=== PATIENT | male | born 1965 | race Caucasian/White ===

== ENCOUNTER 2018-07-25 10:14 | Emergency (ER) | payer OTHER ==
[2018-07-25] MEDS ORDERED: AMOX/K CLAV 875 MG TAB ONE (11:29)
[2018-07-25] MEDS ORDERED: MORPHINE 4 MG/ML SYR ONE (11:29)
[2018-07-25] MEDS ORDERED: ONDANSETRON 4 MG/2 ML VIAL ONE (11:29)
[2018-07-25] MEDS ORDERED: CLINDAMYCIN 600MG/D5W 600 MG/50 ML BAG IV ONE (11:30)
--- NOTE | 2018-07-25 11:39 | ER ---
Nurse's Notes [facility] Name: America Guan Age: 53 yrs Sex: Male : 1965 Arrival Date: 07/25/2018 Time: 10:16 Bed 23 Private MD: Yasmin Meadows H Diagnosis: Cellulitis and acute lymphangitis of finger and toe Presentation: 07/25 10:25 Presenting complaint: Patient states: left hand swelling started last week after sv getting a nail stuck in his left 2nd digit on Wednesday, then had to start using crutches on Wednesday d/t another injury and that is when the hand started swelling. Transition of care: patient was not received from another setting of care. Onset of symptoms was July 23, 2018. Initial Sepsis Screen: Does the patient meet any 2 criteria? No. Patient's initial sepsis screen is negative. Does the patient have a suspected source of infection? No. Patient's initial sepsis screen is negative. Care prior to arrival: None. 10:25 Method Of Arrival: Ambulatory sv 10:25 Acuity: ANA M 3 sv 12:17 Risk Assessment: Do you want to hurt yourself or someone else? Patient reports no aj1 desire to harm self or others. Historical: - Allergies: 10:29 No Known Allergies; sv - PMHx: 10:29 Hypertension; sv - PSHx: 10:29 elbow; sv - Immunization history:: Last tetanus immunization: up to date. - Social history:: Patient/guardian denies using alcohol, street drugs, The patient lives with family, Smoking status: unknown. - Family history:: not pertinent. - Ebola Screening: : Patient denies travel to an Ebola-affected area in the 21 days before illness onset. Screenin:35 Abuse screen: Denies threats or abuse. Denies injuries from another. Nutritional aj1 screening: No deficits noted. Tuberculosis screening: No symptoms or risk factors identified. 12:17 Fall Risk None identified. aj1 Assessment: 10:35 General: Appears in no apparent distress. uncomfortable, Behavior is calm, cooperative, aj1 appropriate for age. Pain: Complains of pain in left hand. Neuro: Level of Consciousness is awake, alert, obeys commands, Oriented to person, place, time, situation. Cardiovascular: Patient's skin is warm and dry. Respiratory: Airway is patent Respiratory effort is even, unlabored, Respiratory pattern is regular, symmetrical. GI: No signs and/or symptoms were reported involving the gastrointestinal system. : No signs and/or symptoms were reported regarding the genitourinary system. EENT: No signs and/or symptoms were reported regarding the EENT system. Derm: Skin is pink, warm \T\ dry. Musculoskeletal: Range of motion: limited in DIP of left middle finger, PIP of left middle finger and MCP of left middle finger Swelling present in left hand. 11:37 Reassessment: Patient appears in no apparent distress at this time. No changes from aj1 previously documented assessment. Patient and/or family updated on plan of care and expected duration. Pain level reassessed. Patient is alert, oriented x 3, equal unlabored respirations, skin warm/dry/pink. 11:41 Reassessment: Patient discharge pending completion of IV antibiotics. aj1 11:55 Reassessment: Patient states that his pain is coming back. Notified Dr. Michael. aj1 11:57 Reassessment: Dr. Michael at bedside. aj1 Vital Signs: 10:29 BP 126 / 86; Pulse 82; Resp 18; Temp 97.6; Pulse Ox 98% ; Weight 73.94 kg; Height 5 ft. sv 10 in. (177.80 cm); Pain 8/10; 12:17 BP 132 / 75; Pulse 88; Resp 18; Pulse Ox 99% on R/A; aj1 10:29 Body Mass Index 23.39 (73.94 kg, 177.80 cm) sv ED Course: 10:16 Patient arrived in ED. ag5 10:17 Yasmin Meadows DO is Private Physician. ag5 10:29 Triage completed. sv 10:30 Arm band placed on. sv 10:35 Patient has correct armband on for positive identification. Bed in low position. Call aj1 light in reach. Side rails up X 1. 10:35 No provider procedures requiring assistance completed. aj1 10:36 Donald Michael MD is Attending Physician. ma2 10:39 Luisa Mckoy RN is Primary Nurse. aj1 11:17 Hand Left 3 View XRAY In Process Unspecified. EDMS 11:17 Inserted saline lock: 20 gauge in right antecubital area, using aseptic technique. lt1 11:38 Lopez Everett MD is Referral Physician. ma2 12:16 IV discontinued, intact, bleeding controlled, No redness/swelling at site. Pressure aj1 dressing applied. Administered Medications: 11:22 Drug: Augmentin 875 mg Route: PO; aj1 12:14 Follow up: Response: No adverse reaction aj1 11:22 Drug: Clindamycin 600 mg Route: IVPB; Infused Over: 30 mins; Site: right antecubital; aj1 12:14 Follow up: IV Status: Completed infusion; IV Intake: 50ml aj1 11:22 Drug: morphine 4 mg Route: IVP; Site: right antecubital; aj1 11:45 Follow up: Response: No adverse reaction; Pain is decreased aj1 11:22 Drug: Zofran 4 mg Route: IVP; Site: right antecubital; aj1 11:45 Follow up: Response: No adverse reaction aj1 12:13 Drug: [place] 10 mg-325 mg 1 tabs Route: PO; aj1 12:15 Follow up: Response: No adverse reaction aj1 Intake: 12:14 IV: 50ml; Total: 50ml. aj1 Outcome: 11:39 Discharge ordered by MD. ma2 12:17 Discharged to home via wheelchair. aj1 12:17 Condition: good 12:17 Discharge instructions given to patient, Instructed on discharge instructions, follow up and referral plans. no drinking with medication, no driving heavy equipment, medication usage, Demonstrated understanding of instructions, follow-up care, medications, Prescriptions given X 3. 12:19 Patient left the ED. aj1 Signatures: Dispatcher [employer] EDLuisa Rose RN RN aj1 Rylee Mcgee RN RN sv Alzahri, Mohammad, MD MD ma2 Gaskin, Ajare Marisa Canales lt1 Corrections: (The following items were deleted from the chart) 10:30 10:29 Pulse 82bpm; Resp 18bpm; Pulse Ox 98%; Temp 97.6F; 73.94 kg; Height 5 ft. 10 in.; sv BMI: 23.3; Pain 8/10; sv
--- NOTE | 2018-07-25 11:39 | EDPHYS ---
Physician Documentation [facility] Name: America Guan Age: 53 yrs Sex: Male : 1965 Arrival Date: 07/25/2018 Time: 10:16 Bed 23 Private MD: Yasmin Meadows H ED Physician Donald Michael HPI: 07/25 11:28 This 53 yrs old Male presents to ER via Ambulatory with complaints of Hand ma2 Swelling, Hand Pain. 11:28 The patient or guardian reports pain, a puncture wound. The complaints affect the left ma2 hand diffusely. Context: The problem was sustained at home. Onset: The symptoms/episode began/occurred gradually. Associated signs and symptoms: Pertinent negatives: decreased sensation distally, fever, numbness distally, tingling distally, vomiting. Severity of symptoms: At their worst the symptoms were mild, in the emergency department the symptoms are unchanged. The patient has not experienced similar symptoms in the past. stuck himself w a nail 3 days ago, here with left index finger/hand swelling and pain . Historical: - Allergies: 10:29 No Known Allergies; sv - PMHx: 10:29 Hypertension; sv - PSHx: 10:29 elbow; sv - Immunization history:: Last tetanus immunization: up to date. - Social history:: Patient/guardian denies using alcohol, street drugs, The patient lives with family, Smoking status: unknown. - Family history:: not pertinent. - Ebola Screening: : Patient denies travel to an Ebola-affected area in the 21 days before illness onset. ROS: 11:28 Constitutional: Negative for fever, chills, and weight loss, ENT: Negative for injury, ma2 pain, and discharge, Cardiovascular: Negative for chest pain, palpitations, and edema, Respiratory: Negative for shortness of breath, cough, wheezing, and pleuritic chest pain, Abdomen/GI: Negative for abdominal pain, nausea, diarrhea, and constipation, Skin: Negative for injury, rash, and discoloration, Neuro: Negative for headache, weakness, numbness, tingling, and seizure, Psych: Negative for depression, anxiety, suicide ideation, homicidal ideation, and hallucinations. 11:28 MS/extremity: Positive for pain, Negative for abrasion, contusion, rash, tingling. Exam: 11:28 Constitutional: This is a well developed, well nourished patient who is awake, alert, ma2 and in no acute distress. Chest/axilla: Normal chest wall appearance and motion. Nontender with no deformity. No lesions are appreciated. Cardiovascular: Regular rate and rhythm with a normal S1 and S2. No gallops, murmurs, or rubs. Normal PMI, no JVD. No pulse deficits. Respiratory: Lungs have equal breath sounds bilaterally, clear to auscultation and percussion. No rales, rhonchi or wheezes noted. No increased work of breathing, no retractions or nasal flaring. Skin: Warm, dry with normal turgor. Normal color with no rashes, no lesions, and no evidence of cellulitis. Neuro: Awake and alert, GCS 15, oriented to person, place, time, and situation. Cranial nerves II-XII grossly intact. Motor strength 5/5 in all extremities. Sensory grossly intact. Cerebellar exam normal. Normal gait. 11:28 Musculoskeletal/extremity: Extremities: all appear grossly normal, with no appreciated pain with palpation, ROM: Circulation is intact in all extremities. Sensation intact. Compartment Syndrome exam of affected extremity: is normal. no tingling, no sensation deficit, no palor, no weak pulses, Joints: Tendon exam: specific tendon testing normal through active and passive range of motion left index finger mild swelling and redness around puncture wound, able to actively and passively flex and extend, tenosynovitis unlikely given no uniform swelling, no ttp over palmar tendon sheeth, able to flex and extend actively and passively with no tenderness . Vital Signs: 10:29 BP 126 / 86; Pulse 82; Resp 18; Temp 97.6; Pulse Ox 98% ; Weight 73.94 kg; Height 5 ft. sv 10 in. (177.80 cm); Pain 8/10; 12:17 BP 132 / 75; Pulse 88; Resp 18; Pulse Ox 99% on R/A; aj1 10:29 Body Mass Index 23.39 (73.94 kg, 177.80 cm) sv MDM: 10:36 Patient medically screened. ma2 11:28 Differential diagnosis: left hand infection. Data reviewed: vital signs, nurses notes. ma2 Counseling: I had a detailed discussion with the patient and/or guardian regarding: the historical points, exam findings, and any diagnostic results supporting the discharge/admit diagnosis, the presence of at least one elevated blood pressure reading (>120/80) during this emergency department visit, the need for outpatient follow up. Response to treatment: the patient's symptoms have markedly improved after treatment. 07/25 10:53 Order name: Hand Left 3 View XRAY; Complete Time: 11:59 ma2 Administered Medications: 11:22 Drug: Augmentin 875 mg Route: PO; aj1 12:14 Follow up: Response: No adverse reaction aj1 11:22 Drug: Clindamycin 600 mg Route: IVPB; Infused Over: 30 mins; Site: right antecubital; aj1 12:14 Follow up: IV Status: Completed infusion; IV Intake: 50ml aj1 11:22 Drug: morphine 4 mg Route: IVP; Site: right antecubital; aj1 11:45 Follow up: Response: No adverse reaction; Pain is decreased aj1 11:22 Drug: Zofran 4 mg Route: IVP; Site: right antecubital; aj1 11:45 Follow up: Response: No adverse reaction aj1 12:13 Drug: [place] 10 mg-325 mg 1 tabs Route: PO; aj1 12:15 Follow up: Response: No adverse reaction aj1 Disposition: 07/25/18 11:39 Discharged to Home. Impression: Cellulitis and acute lymphangitis of finger and toe. - Condition is Stable. - Discharge Instructions: Cellulitis, Adult. - Prescriptions for Augmentin 875- 125 mg Oral Tablet - take 1 tablet by ORAL route every 12 hours for 10 days; 20 tablet. Clindamycin HCl 300 mg Oral Capsule - take 1 capsule by ORAL route every 6 hours for 10 days; 40 capsule. Tylenol- Codeine #3 300-30 mg Oral Tablet - take 2 tablet by ORAL route every 6 hours As needed; 6 tablet. - Medication Reconciliation Form, Thank You Letter, Antibiotic Education, Prescription Opioid Use form. - Follow up: Private Physician; When: Tomorrow; Reason: Continuance of care. Follow up: Lopez Everett MD; When: Tomorrow; Reason: Continuance of care. Signatures: Dispatcher [employer] EDLuisa Rose RN RN aj1 Rylee Mcgee RN RN Donald Michael MD MD ma2 Corrections: (The following items were deleted from the chart) 12:19 11:39 07/25/2018 11:39 Discharged to Home. Impression: Cellulitis and acute aj1 lymphangitis of finger and toe. Condition is Stable. Prescriptions for Augmentin 875-125 mg Oral Tablet - take 1 tablet by ORAL route every 12 hours for 10 days; 20 tablet, Clindamycin HCl 300 mg Oral Capsule - take 1 capsule by ORAL route every 6 hours for 10 days; 40 capsule, Tylenol-Codeine #3 300-30 mg Oral Tablet - take 2 tablet by ORAL route every 6 hours As needed; 6 tablet. and Forms are Medication Reconciliation Form, Thank You Letter, Antibiotic Education, Prescription Opioid Use. Follow up: Private Physician; When: Tomorrow; Reason: Continuance of care. Follow up: Lopez Everett; When: Tomorrow; Reason: Continuance of care. ma2
--- NOTE | 2018-07-25 11:47 | RAD REPORT ---
EXAM DESCRIPTION: RAD -Hand Left 3 View - 07/25/2018 11:16 am CLINICAL HISTORY: Left hand pain status post injury FINDINGS: No fracture or dislocation is seen. No bony destructive lesions seen
[2018-07-25] MEDS ORDERED: HYDROCODONE/APAP 10/325 TAB ONE (12:19)
[2018-07-25 12:48] VITALS: TEMP 97.6
[2018-07-25 12:49] VITALS: BP 132/75; O2SAT 99
== END 2018-07-25 12:19 | disposition home or self-care (01) ==
LOC: ER 10:14
DX: L03.012 Cellulitis of left finger (principal); L03.032 Cellulitis of left toe; L03.022 Acute lymphangitis of left finger; L03.042 Acute lymphangitis of left toe; I10 Essential (primary) hypertension
CPT/HCPCS: 96365; 96375; 99284; J2405

== ENCOUNTER 2018-07-26 16:52 | Inpatient (IN) | payer OTHER ==
--- NOTE | 2018-07-26 17:42 | P.HP ---
Certification for Inpatient Patient admitted to: Inpatient With expected LOS: >2 Midnights Patient will require the following post-hospital care: None Practitioner: I am a practitioner with admitting privileges, knowledge of patient current condition, hospital course, and medical plan of care. Services: Services provided to patient in accordance with Admission requirements found in Title 42 Section 412.3 of the Code of Federal Regulations Patient History Date of Service: 07/26/18 Primary Care Provider: Dr. Meadows; Orthopedics-Dr. Garcia Reason for admission: Left second finger septic tenosynovitis History of Present Illness: 53-year-old male presents as a direct admit. I was asked to admit the patient for orthopedics. Patient reported that he accidentally had a puncture injury using a drill bid while at work last week. This was to the palmar side of the left index finger. Patient did well after injury. No indication of pus, inflammation noted. Then later that week on Wednesday he fell sprained his right ankle. He was seen at a local outpatient ER. X-rays showed no indication of fracture. Patient was given crutches. Then patient reported increased swelling to the left hand primarily to the left index finger. He thinks it was related to putting too much pressure on the crutches. He went to the ER on Wednesday to get evaluated. He had an x-ray showing no fracture. He was given IV antibiotic therapy and sent home with Augmentin and Clindamycin. His swelling did not improve. He went to see orthopedics today. Orthopedics was concerned for septic tenosynovitis of the 2nd digit on the left side. Patient was admitted for further evaluation and treatment. When I saw the patient initially, some warmth was noted to the left 2nd digit. No pus or drainage noted. Puncture site was noted. Patient with swelling and ecchymosis to the right ankle region. Patient denied any fever, chills. Patient with history of GERD, hypertension and tobacco/alcohol use. Home medications list reviewed: Yes - Past Medical/Surgical History Diabetic: No -: Hypertension -: GERD -: Tobacco use -: Alcohol use -: Right elbow-irrigation and debridement Psychosocial/ Personal History: Patient is . He has 3 children. He works as a residential instructor - Family History Family History: Reviewed- Non-Contributory - Social History Smoking Status: Light Tobacco smoker (1-9 cigarettes/day) Counseled patient to stop smoking for: less than 10 minutes Smoking therapy provided: Yes Patient receptive to therapy: Yes Alcohol use: Yes CD- Drugs: No Caffeine use: Yes Place of Residence: Home Review of Systems General: As per HPI Eyes: Unremarkable ENT: Unremarkable Respiratory: Unremarkable Cardiovascular: Unremarkable Gastrointestinal: Unremarkable Genitourinary: Unremarkable Musculoskeletal: Hand Pain, Foot Pain, Pedal edema, As per HPI Integumentary: As per HPI Neurological: Unremarkable Lymphatics: Unremarkable Physical Examination - Physical Exam General: Alert, In no apparent distress, Oriented x3, Cooperative HEENT: Atraumatic, Normocephalic, PERRLA, Mucous membr. moist/pink Neck: Supple, No Thyromegaly Respiratory: Clear to auscultation bilaterally, Normal air movement Cardiovascular: Normal pulses, Regular rate/rhythm Gastrointestinal: Normal bowel sounds, Soft and benign, Non-distended Musculoskeletal: Other (Slight warmth noted to the left index finger to the palmar side. Puncture site noted. no exudate noted. Patient not able to fully store specialist. Ecchymoses to the right ankle region with swelling noted) Neurological: Normal speech, Normal strength at 5/5 x4 extr, Normal tone, Sensation intact, Normal affect Assessment and Plan - Plan Impression: Left 2nd digit septic tenosynovitis related to puncture injury Right ankle sprain Hypertension GERD Tobacco use Plan: Left 2nd digit septic tenosynovitis related to puncture injury: Patient will be direct admitted for further evaluation and treatment. Case discussed with orthopedics. Orthopedics recommends IV vancomycin and clindamycin at this time. Will keep the patient NPO after midnight. As the patient will have surgery tomorrow for further evaluation and likely debridement. Will provide medication for pain. Will obtain blood cultures and lab to further evaluate. Will check to see if patient is up-to-date on tetanus. If not patient will required tetanus booster. Pharmacy to monitor and adjust medication. Will start DVT prophylaxis after surgery. Anticipate discharge likely in the next 3- 5 days pending surgical plan of care. Right ankle sprain: Will elevate leg when sitting or lying. Orthopedics desires repeat x-ray to rule out fracture. Brace in place. Patient may continue with crutches. Hypertension: Restart home medication. Will monitor and adjust appropriately. GERD: Will provide medication. Tobacco use: Tobacco cessation addressed in detail. Patient may require nicotine patch. Discharge Plan: Home Plan to discharge in: Greater than 2 days - Advance Directives Does patient have a Living Will: No Does patient have a Durable POA for Healthcare: No - Code Status/Comfort Care Code Status Assessed: Yes (Patient is full code.) Time Spent Managing Pts Care (In Minutes): 55
--- NOTE | 2018-07-26 18:25 | ER ---
Nurse's Notes [facility] Name: America Guan Age: 53 yrs Sex: Male : 1965 Arrival Date: 07/26/2018 Time: 16:55 Bed 19 Private MD: Yasmin Meadows H Diagnosis: L 2nd flexor tendon tenosynovitis Presentation: 07/26 17:13 Presenting complaint: Patient states: Direct Admit. Sent by Dr. Garcia for L 2nd ss flexor tendon tenosynovitis. Transition of care: patient was not received from another setting of care. Onset of symptoms. 17:13 Method Of Arrival: Ambulatory ss 17:13 Acuity: ANA M 3 ss 17:13 Risk Assessment: Do you want to hurt yourself or someone else? Patient reports no ss desire to harm self or others. Initial Sepsis Screen: Does the patient have a suspected source of infection? Yes: Skin breakdown/wound. Care prior to arrival: None. Assessment: 18:47 Reassessment: Tried to call report to second floor but there was no answer at this time.rb1 Vital Signs: 18:00 BP 160 / 99; Pulse 67; Resp 17; Temp 98.2(O); Pulse Ox 98% on R/A; Weight 73.94 kg (R); rb1 Height 5 ft. 10 in. (177.80 cm) (R); Pain 0/10; 18:00 Body Mass Index 23.39 (73.94 kg, 177.80 cm) rb1 ED Course: 16:55 Patient arrived in ED. rg4 16:55 Yasmin Meadows DO is Private Physician. rg4 17:13 Arm band placed on. ss 17:17 Triage completed. ss 18:23 Abdiaziz Morris DO is Hospitalizing Provider. ss 18:28 Parisa Nur, RN is Primary Nurse. rb1 19:00 No provider procedures requiring assistance completed. Patient did not have IV access ss during this emergency room visit. Administered Medications: No medications were administered Outcome: 18:25 Decision to Hospitalize by Provider. ss 19:00 Admitted to Med/surg accompanied by tech. ss 19:00 Patient left the ED. Signatures: Jen Baugh RN RN Parisa Nur, RN RN rb1 Keo, Madeline rg4
[2018-07-26] MEDS ORDERED: MORPHINE 2 MG/ML SYR IV PRN (19:03)
[2018-07-26] MEDS ORDERED: ACETAMINOPHEN 500 MG TAB PO PRN (19:03)
[2018-07-26] MEDS ORDERED: ONDANSETRON 4 MG/2 ML VIAL IV PRN (19:03)
[2018-07-26 19:18] VITALS: BMI 22.8
[2018-07-26 19:59] LABS: Absolute Lymphocytes (CBC) 1.4 K/uL (0.7-4.9); Basophils % 1.3 % (0-1.3); Eosinophils % 0.9 % (0-4.4); Hematocrit 46.3 % (39.6-49.0); Lymphocytes % 14.4 % (15.3-44.8); MPV 8.4 fL (7.6-11.3); Monocytes % 8.4 % (3.3-12.3); RBC Red Blood Cell Count 4.99 M/uL (4.33-5.43)
[2018-07-26] MEDS: CLINDAMYCIN INJ 900 MG in NA CHLORIDE 0.9% 50 ML IV SCH (20:00)
--- NOTE | 2018-07-26 20:09 | RAD REPORT ---
EXAM DESCRIPTION: RAD - Ankle Right 3 View - 07/26/2018 8:02 pm CLINICAL HISTORY: Follow up right ankle sprain Pain and swelling COMPARISON: No comparisons FINDINGS: Moderate soft tissue swelling is seen along the lateral malleolus. Prominent posterior corey caneal spur present. No acute fracture seen.
[2018-07-26 20:21] LABS: C-Reactive Protein 88.6 mg/L (<3.00); Magnesium 2.2 mg/dL (1.8-2.4); Potassium 3.8 mmol/L (3.5-5.1)
[2018-07-26] MEDS ORDERED: CLINDAMYCIN IV 150 MG/ML (6 mL) VIAL ONE (20:51)
[2018-07-26] MEDS ORDERED: VANCOMYCIN 1.25 GM in NA CHLORIDE 0.9% 500 ML IVPB SCH (21:00)
[2018-07-26] MEDS: FAMOTIDINE 20 MG TAB PO SCH (21:07)
[2018-07-26] MEDS: ENALAPRIL 10 MG TAB PO SCH (21:07)
[2018-07-26] MEDS ORDERED: NA CHLORIDE 0.9% 50 ML ONE (21:08)
[2018-07-26] MEDS ORDERED: TETANUS & DIPHTHERIA TOX,ADULT 0.5 ML VIAL IMVAC ONE (21:22)
[2018-07-26] MEDS ORDERED: VANCOMYCIN 1 GM/VIAL ONE (21:44)
[2018-07-26] MEDS ORDERED: VANCOMYCIN 500 MG/VIAL ONE (21:46)
[2018-07-26] MEDS: HYDROCODONE/APAP 7.5/325 MG TAB PO PRN (21:48)
[2018-07-26] MEDS ORDERED: NA CHLORIDE 0.9% 500 ML ONE (21:51)
[2018-07-26] MEDS ORDERED: TETANUS & DIPHTHERIA TOX,ADULT 0.5 ML VIAL ONE (22:46)
[2018-07-26 23:26] LABS: Urine Appearance TURBID; Urine Bilirubin NEGATIVE (NEG); Urine Blood TRACE (NEG); Urine Color YELLOW; Urine Glucose TRACE (NEG); Urine Protein TRACE (NEG); Urine Specific Gravity >=1.030 (1.005-1.030); Urine Urobilinogen 0.2 mg/dL (0.2-1.0)
[2018-07-26 23:29] LABS: Urine Microscopic Reflex ORDER UMIC
[2018-07-27 01:02] LABS: Calcium Oxalate Crystals- Ur MANY (NONE SEEN); Urine Amorphous Sediment 1+ /HPF (NONE SEEN); Urine Bacteria 20-50 /HPF (NONE SEEN); Urine Culture Reflex Order REFLEXED; Urine RBC NONE SEEN /HPF (NONE SEEN)
[2018-07-27] MEDS ORDERED: CLINDAMYCIN IV 150 MG/ML (6 mL) VIAL ONE (03:31)
[2018-07-27] MEDS ORDERED: NA CHLORIDE 0.9% 50 ML ONE (03:32)
[2018-07-27] MEDS: CLINDAMYCIN INJ 900 MG in NA CHLORIDE 0.9% 50 ML IV SCH ×3 (04:00→17:14)
[2018-07-27 06:19] LABS: Absolute Lymphocytes (CBC) 1.5 K/uL (0.7-4.9); Basophils % 0.7 % (0-1.3); Eosinophils % 1.6 % (0-4.4); Hematocrit 39.8 % (39.6-49.0); Lymphocytes % 19.4 % (15.3-44.8); MPV 8.2 fL (7.6-11.3); RBC Red Blood Cell Count 4.31 M/uL (4.33-5.43)
--- NOTE | 2018-07-27 07:31 | EKG ---
Test Date: 2018-07-26 Test Time: 19:45:56 Applications Sales Consultant: RT MEASUREMENT RESULTS: Intervals: Rate: 78 GA: 192 QRSD: 96 QT: 376 QTc: 428 [place]: P: 78 GA: 192 QRS: 8 T: 62 INTERPRETIVE STATEMENTS: Normal sinus rhythm Biatrial enlargement Incomplete right bundle branch block Septal infarct, age undetermined Abnormal ECG Compared to ECG 04/12/2009 05:51:50 Atrial abnormality now present Incomplete right bundle-branch block now present Myocardial infarct finding now present Sinus bradycardia no longer present Left ventricular hypertrophy no longer present Electronically Signed On 07-27-18 07:30:54 CDT by Micheal Durham
[2018-07-27] MEDS: FAMOTIDINE 20 MG TAB PO SCH ×2 (08:07→20:50)
[2018-07-27] MEDS: ENALAPRIL 10 MG TAB PO SCH ×2 (08:07→20:50)
--- NOTE | 2018-07-27 09:14 | P.PN ---
Subjective Date of Service: 07/27/18 Primary Care Provider: Dr. Meadows; Orthopedics-Dr. Garcia Chief Complaint: Left second finger septic tenosynovitis Subjective: Improving (Swelling to the left hand improved.) Physical Examination - Vital Signs Temperature: 96.4 F Blood Pressure: 137/95 Pulse: 73 Respirations: 16 Pulse Ox (%): 98 - Physical Exam General: Alert, In no apparent distress, Oriented x3, Cooperative HEENT: Atraumatic Neck: Supple Respiratory: Clear to auscultation bilaterally, Normal air movement Cardiovascular: Normal pulses, Regular rate/rhythm Integumentary: Other (Erythema and swelling noted to the left hand improved. Right ankle appears stable. Ecchymosis noted) Neurological: Normal speech, Normal strength at 5/5 x4 extr, Normal tone - Studies Medications List Reviewed: Yes Assessment & Plan Discharge Plan: Home Plan to discharge in: 72 Hours Physician Review Additional Text: Impression: Left 2nd digit septic tenosynovitis related to puncture injury Right ankle sprain Hypertension GERD Tobacco use Plan: Left 2nd digit septic tenosynovitis related to puncture injury: Patient remains on IV antibiotic therapy. Slight improvement noted in erythema and swelling to the left hand. Patient NPO for surgical intervention by orthopedics today. Await findings and recommendation. Continue with pain medication as needed. Anticipate discharge likely in the next 3-5 days pending surgical plan of care. Right ankle sprain: Will elevate leg when sitting or lying. X-ray shows no fracture. Patient may continue with crutches and ice pack to help with swelling. Hypertension: Continue home medication. Will monitor and adjust appropriately. GERD: Will continue to provide medication. Tobacco use: Tobacco cessation addressed in detail. Patient may require nicotine patch if needed. Time Spent Managing Pts Care (In Minutes): 55
[2018-07-27] MEDS: VANCOMYCIN 1.25 GM in NA CHLORIDE 0.9% 250 ML IVPB SCH ×2 (09:50→20:51)
[2018-07-27] MEDS ORDERED: VANCOMYCIN 1.25 GM in NA CHLORIDE 0.9% 500 ML IVPB SCH (10:00)
[2018-07-27] MEDS ORDERED: FENTANYL CITR 100 MCG/2 ML IV PRN (10:24)
[2018-07-27] MEDS ORDERED: MIDAZOLAM HCL 2 MG/2 ML INJ ONE (12:59)
[2018-07-27] MEDS ORDERED: FENTANYL CITR 100 MCG/2 ML ONE ×2 (12:59→15:26)
[2018-07-27] MEDS ORDERED: LIDOCAINE 1% MPF 5 ML VIAL ONE (12:59)
[2018-07-27] MEDS ORDERED: PROPOFOL 200 MG/20 ML VIAL IV ONE (12:59)
[2018-07-27] MEDS ORDERED: Ringers Lactate 1,000 ML IV ONE (14:50)
[2018-07-27] MEDS ORDERED: KETOROLAC 30 MG/ML INJ ONE (15:14)
[2018-07-27] MEDS ORDERED: ONDANSETRON 4 MG/2 ML VIAL ONE (15:25)
--- NOTE | 2018-07-27 15:50 | P.BOP ---
Preoperative diagnosis: left 2nd digit septic tenosynovitis Postoperative diagnosis: same Primary procedure: I&D 2nd flexor tendon sheath Estimated blood loss: 5 ccs Specimen: cx sent Anesthesia: General Complications: None Transferred to: Recovery Room Condition: Good
[2018-07-27] MEDS: HYDROMORPHONE HCL 2 MG/ML inj ONE ×4 (16:02→16:40)
[2018-07-27] MEDS: ENOXAPARIN 40 MG/0.4 ML SQ SCH (20:50)
[2018-07-28] MEDS: CLINDAMYCIN INJ 900 MG in NA CHLORIDE 0.9% 50 ML IV SCH ×3 (00:59→17:42)
[2018-07-28 06:22] LABS: Absolute Lymphocytes (CBC) 1.6 K/uL (0.7-4.9); Eosinophils % 1.3 % (0-4.4); Hematocrit 38.4 % (39.6-49.0); Lymphocytes % 22.6 % (15.3-44.8); MPV 8.1 fL (7.6-11.3); Monocytes % 12.3 % (3.3-12.3); RBC Red Blood Cell Count 4.21 M/uL (4.33-5.43)
[2018-07-28] MEDS: ENOXAPARIN 40 MG/0.4 ML SQ SCH (09:06)
[2018-07-28] MEDS: ENALAPRIL 10 MG TAB PO SCH ×2 (09:07→20:55)
[2018-07-28] MEDS: FAMOTIDINE 20 MG TAB PO SCH ×2 (09:07→20:55)
[2018-07-28] MEDS: VANCOMYCIN 1.25 GM in NA CHLORIDE 0.9% 250 ML IVPB SCH (10:00)
[2018-07-28] MEDS: VANCOMYCIN 1.5 GM in NA CHLORIDE 0.9% 500 ML IVPB SCH ×2 (11:04→22:47)
[2018-07-28] MEDS: HYDROCODONE/APAP 7.5/325 MG TAB PO PRN ×3 (11:10→23:49)
--- NOTE | 2018-07-28 11:22 | P.PN ---
Subjective Date of Service: 07/28/18 Primary Care Provider: Dr. Meadows; Orthopedics-Dr. Garcia Chief Complaint: Left second finger septic tenosynovitis Subjective: Doing well Physical Examination - Vital Signs Temperature: 97.3 F Blood Pressure: 131/68 Pulse: 84 Respirations: 16 Pulse Ox (%): 98 - Physical Exam General: Alert, In no apparent distress, Oriented x3, Cooperative HEENT: Atraumatic Neck: Supple Respiratory: Clear to auscultation bilaterally, Normal air movement Cardiovascular: Normal pulses, Regular rate/rhythm Gastrointestinal: Normal bowel sounds, Soft and benign, Non-distended Integumentary: Other (Left hand wrapped. Edema improved. Range of motion improved.) - Studies Microbiology Data (last 24 hrs): 07/26/18 15:04 Wound - Left Finger Gram Stain - Final Medications List Reviewed: Yes Assessment & Plan Discharge Plan: Home Plan to discharge in: 24 Hours Physician Review Additional Text: Impression: Left 2nd digit septic tenosynovitis related to puncture injury status post I and D Right ankle sprain Hypertension GERD Tobacco use Plan: Left 2nd digit septic tenosynovitis related to puncture injury status post I and D: Patient had I and D yesterday. Patient reports improvement in swelling and range of motion. Continue IV antibiotic therapy. Will discuss with orthopedics for plan of care. Cultures obtained. So far negative. Likely discharge in the next 1-2 days. Continue with wound care and exercises. Right ankle sprain: Continue with exercises. Will elevate leg when sitting or lying. X-ray shows no fracture. Patient may continue with crutches and ice pack to help with swelling. Hypertension: Overall stable. Continue home medication. Will monitor and adjust appropriately. GERD: Will continue to provide medication. Tobacco use: Tobacco cessation addressed in detail. Patient may require nicotine patch if needed. Time Spent Managing Pts Care (In Minutes): 55
[2018-07-29] MEDS: CLINDAMYCIN INJ 900 MG in NA CHLORIDE 0.9% 50 ML IV SCH ×2 (00:33→08:18)
[2018-07-29] MEDS: TRAMADOL HCL 50 MG TAB PO PRN ×2 (04:15→15:10)
[2018-07-29 06:42] LABS: Absolute Lymphocytes (CBC) 1.3 K/uL (0.7-4.9); Basophils % 1.1 % (0-1.3); Eosinophils % 1.7 % (0-4.4); Hematocrit 37.9 % (39.6-49.0); Lymphocytes % 24.3 % (15.3-44.8); MPV 8.1 fL (7.6-11.3); Monocytes % 12.6 % (3.3-12.3); RBC Red Blood Cell Count 4.15 M/uL (4.33-5.43)
[2018-07-29] MEDS: ENOXAPARIN 40 MG/0.4 ML SQ SCH (08:17)
[2018-07-29] MEDS: HYDROCODONE/APAP 7.5/325 MG TAB PO PRN (08:18)
[2018-07-29] MEDS: ENALAPRIL 10 MG TAB PO SCH (08:19)
[2018-07-29] MEDS: FAMOTIDINE 20 MG TAB PO SCH (08:20)
--- NOTE | 2018-07-29 11:08 | RAD REPORT ---
EXAM DESCRIPTION: CT - Ankle Right Wo Con - 07/28/2018 11:35 am CLINICAL HISTORY: Ankle pain status post injury COMPARISON: July 26, 2018 x-ray TECHNIQUE: Computed axial tomography left ankle obtained with coronal and sagittal reconstruction. All CT scans are performed using dose optimization technique as appropriate and may include automated exposure control or mA/KV adjustment according to patient size. FINDINGS: The examination could not be dictated due to technical issues after completion 21 millimeter avulsion fracture posteromedial talus. Additional smaller avulsed bone fragments. No dislocation IMPRESSION: 21 millimeter avulsion fracture posteromedial talus. Referring physician notified
[2018-07-29] MEDS: VANCOMYCIN 1.5 GM in NA CHLORIDE 0.9% 500 ML IVPB SCH (11:57)
--- NOTE | 2018-07-29 12:44 | P.DS ---
Admission Date: 07/26/18 Discharge Date: 07/29/18 Primary Care Provider: Dr. Meadows; Orthopedics-Dr. Garcia Disposition: ROUTINE DISCHARGE Discharge Condition: GOOD Reason for Admission: Left second finger septic tenosynovitis Consultations: Orthopedics-Dr. Garcia Procedures: Xray: COMPARISON: No comparisons FINDINGS: Moderate soft tissue swelling is seen along the lateral malleolus. Prominent posterior calcaneal spur present. No acute fracture seen. CT scan: COMPARISON: July 26, 2018 x-ray TECHNIQUE: Computed axial tomography left ankle obtained with coronal and sagittal reconstruction. All CT scans are performed using dose optimization technique as appropriate and may include automated exposure control or mA/KV adjustment according to patient size. FINDINGS: The examination could not be dictated due to technical issues after completion 21 millimeter avulsion fracture posteromedial talus. Additional smaller avulsed bone fragments. No dislocation IMPRESSION: 21 millimeter avulsion fracture posteromedial talus. Referring physician notified Surgery: I/D of Left second tendon sheath Medical Problem List: Left 2nd digit septic tenosynovitis related to puncture injury status post I and D Right ankle sprain with noted 21 mm avulsion fracture of posterior medial talus Hypertension GERD Tobacco use Brief History of Present Illness: 53-year-old male presents as a direct admit. I was asked to admit the patient for orthopedics. Patient reported that he accidentally had a puncture injury using a drill bid while at work last week. This was to the palmar side of the left index finger. Patient did well after injury. No indication of pus, inflammation noted. Then later that week on Wednesday he fell sprained his right ankle. He was seen at a local outpatient ER. X-rays showed no indication of fracture. Patient was given crutches. Then patient reported increased swelling to the left hand primarily to the left index finger. He thinks it was related to putting too much pressure on the crutches. He went to the ER on Wednesday to get evaluated. He had an x-ray showing no fracture. He was given IV antibiotic therapy and sent home with Augmentin and Clindamycin. His swelling did not improve. He went to see orthopedics today. Orthopedics was concerned for septic tenosynovitis of the 2nd digit on the left side. Patient was admitted for further evaluation and treatment. When I saw the patient initially, some warmth was noted to the left 2nd digit. No pus or drainage noted. Puncture site was noted. Patient with swelling and ecchymosis to the right ankle region. Patient denied any fever, chills. Patient with history of GERD, hypertension and tobacco/alcohol use. Hospital Course: Patient presented as a direct admit for left 2nd digit septic tenosynovitis. This was related to a puncture injury. Patient was seen and evaluated by orthopedics as an outpatient. Orthopedics recommended irrigation and debridement of tendon. Surgery was performed for irrigation and debridement. Patient tolerated procedure well. Patient received IV antibiotic therapy during his stay. Patient has done well. So far wound cultures show no growth of bacteria. Improvement in range of motion and erythema/swelling noted to the left hand. Case discussed at length with orthopedics. Patient will be discharged home. Patient will continue with Bactrim DS 1 pill twice daily for 10 days. Patient may continue with tramadol 50 mg 3 times a day as needed for pain. Patient will follow up with orthopedics on Wednesday to follow up this hospitalization. Patient will continue with platform walker. Patient to continue with physical therapy recommendations. He is to keep Hand wrapped until Wednesday. Patient also had right ankle sprain. CT scan revealed 21 mm avulsion fracture of the posterior medial talus. This was addressed by orthopedics. Orthopedics plans for outpatient surgery. Patient will continue nonweightbearing to the right foot. Patient to continue with crutches and platform walker. Fall precautions in place. Likely surgery in the next 1-2 weeks. Patient with hypertension. This has remained stable. Patient will continue with Enalapril as directed. Patient with GERD. Patient will continue with his medication. Patient with tobacco abuse. Tobacco cessation addressed in detail. Education will be provided. Vital Signs/Physical Exam: Temp Pulse Resp BP Pulse Ox 98.3 F 76 16 131/78 100 07/29/18 08:00 07/29/18 08:19 07/29/18 08:00 07/29/18 08:19 07/29/18 08:00 General: Alert, In no apparent distress, Oriented x3, Cooperative HEENT: Atraumatic Neck: Supple Respiratory: Clear to auscultation bilaterally, Normal air movement Cardiovascular: Normal pulses, Regular rate/rhythm Gastrointestinal: Normal bowel sounds, Soft and benign Musculoskeletal: Other (Improved swelling to the left hand) Neurological: Normal speech, Normal strength at 5/5 x4 extr, Normal tone, Normal affect Laboratory Data at Discharge: WBC 5.5 K/uL (4.3-10.9) D 07/29/18 05:41 Hgb 13.2 g/dL (13.6-17.9) L 07/29/18 05:41 Hct 37.9 % (39.6-49.0) L 07/29/18 05:41 Plt Count 328 K/uL (152-406) 07/29/18 05:41 Sodium 137 mmol/L (136-145) 07/26/18 19:30 Potassium 3.8 mmol/L (3.5-5.1) 07/26/18 19:30 BUN 21 mg/dL (7-18) H 07/26/18 19:30 Creatinine 0.75 mg/dL (0.55-1.3) 07/28/18 08:51 Glucose 91 mg/dL (74-106) 07/26/18 19:30 Magnesium 2.2 mg/dL (1.8-2.4) 07/26/18 19:30 Home Medications: Enalapril [Vasotec*] 20 mg PO BID 07/26/18 Omeprazole [Prilosec] 40 mg PO DAILY 07/26/18 Sulfamethoxazole/Trimethoprim [Bactrim Ds Tablet] 1 each PO BID #20 tablet 07/29 traMADol HCL [Ultram*] 50 mg PO TID PRN #20 tab 07/29/18 New Medications: Sulfamethoxazole/Trimethoprim [Bactrim Ds Tablet] 1 each PO BID #20 tablet traMADol HCL [Ultram*] 50 mg PO TID PRN #20 tab PRN Reason: Pain Patient Discharge Instructions: 1. Follow up with Orthopedics on Wednesday. 2. Patient presented as a direct admit for left 2nd digit septic tenosynovitis. This was related to a puncture injury. Patient was seen and evaluated by orthopedics as an outpatient. Orthopedics recommended irrigation and debridement of tendon. Surgery was performed for irrigation and debridement. Patient tolerated procedure well. Patient received IV antibiotic therapy during his stay. Patient has done well. So far wound cultures show no growth of bacteria. Improvement in range of motion and erythema/swelling noted to the left hand. Case discussed at length with orthopedics. Patient will be discharged home. Patient will continue with Bactrim DS 1 pill twice daily for 10 days. Patient may continue with tramadol 50 mg 3 times a day as needed for pain. Patient will follow up with orthopedics on Wednesday to follow up this hospitalization. Patient will continue with platform walker. Patient to continue with physical therapy recommendations. He is to keep Hand wrapped until Wednesday. 3. Patient also had right ankle sprain. CT scan revealed 21 mm avulsion fracture of the posterior medial talus. This was addressed by orthopedics. Orthopedics plans for outpatient surgery. Patient will continue nonweightbearing to the right foot. Patient to continue with crutches and platform walker. Fall precautions in place. Likely surgery in the next 1-2 weeks. 4. Patient with hypertension. This has remained stable. Patient will continue with Enalapril as directed. 5. Patient with GERD. Patient will continue with his medication. 6. Patient with tobacco abuse. Tobacco cessation addressed in detail. Education will be provided. Diet: AHA Activity: Fall precautions Time spent managing pt's care (in minutes): 55
[2018-07-29 15:08] VITALS: BP 128/79; TEMP 98.7
[2018-07-29 15:38] VITALS: O2SAT 98
--- NOTE | 2018-08-23 22:58 | OP ---
Date of Procedure: 07/27/2018 Surgeon: Jeffery Garcia MD Preoperative Diagnoses: Left second digit septic tenosynovitis. Postoperative Diagnosis: Left second digit septic tenosynovitis. Procedure: Irrigation and debridement of second flexor tendon sheath. Estimated Blood Loss: 5 cc. There are cultures set. Complications: There were no complications. Indications For Operation: Mr. Bay is a patient who came to see me. He is essentially seeing me for an injury to his ankle, but was really unable to use crutches because of severe pain related t o his left second digit. On physical examination of the digit, he has two areas where he had a punct ure wound from a drill some days earlier, but now held his finger in a flexed posture. It is erythem atous. He has pain with passive stretch. He has pain throughout the flexor tendon sheath and also f usiform swelling. Diagnosis is septic flexor tenosynovitis and he is admitted to the hospital and al l risks, benefits, and alternatives of the procedure had been discussed with them. He states he unde rstands things presented and wished to proceed. Description Of Procedure: The patient was taken to the operating room and placed in the supine [facility] ion. General anesthesia was obtained by the staff on the floor. A padded tourniquet was placed on t he superior left arm. The left upper extremity was then prepped and draped in the usual sterile formerly [facility] ion for the procedure. The arm was then elevated but not exsanguinated and the tourniquet was raised . An incision was made at the A1 jose, which was taken down carefully through the skin and soft ti ssues. Meticulous hemostasis being maintained using bipolar electrocautery. This leads down to the A1 tendon sheath. The A1 jose is then divided with a ochoa of synovial fluid. A secondary incision was made along the mid axial line of the second digit and an IV catheter is fed through the tendon s meliton. There was really not much irrigation that could be done in this fashion because of kinking of the catheter. Therefore, a secondary incision was made to allow for better debridement as well as i rrigation. After it had been irrigated, the patient was then placed in a well-padded sterile dressin g, awakened, and taken to recovery room in good condition. There were no complications. SE/MODL Voice ID: [id number] Report ID: [id number]
== END 2018-07-29 15:44 | disposition home or self-care (01) | DRG 514 ==
LOC: ER 16:52 → ERHOLD 16:55 → 2ND 18:57
PROVIDERS: ADMIT Family Medicine; ATTEND Family Medicine
PROC: 0L980ZZ Drainage of Left Hand Tendon, Open Approach (ICD-10-PCS; principal; 2018-07-27 13:30)
DX: M65.142 Other infective (teno)synovitis, left hand (principal); S61.233A Puncture wound without foreign body of left middle finger without damage to nail, initial encounter; I10 Essential (primary) hypertension; F17.210 Nicotine dependence, cigarettes, uncomplicated; K21.9 Gastro-esophageal reflux disease without esophagitis; S92.131A Displaced fracture of posterior process of right talus, initial encounter for closed fracture; W19.XXXA Unspecified fall, initial encounter; W29.8XXA Contact with other powered hand tools and household machinery, initial encounter; Y93.89 Activity, other specified; Y92.9 Unspecified place or not applicable; Y99.0 Civilian activity done for income or pay; Z23 Encounter for immunization
CPT/HCPCS: 36415; 73700; 80048; 80202; 81003; 81015; 82565; 83735; 84145; 85025; 85652; 86140; 87040; 87070; 87075; 87086; 87088; 87205; 90471; 90714; 93005; 96365; 96375; 97162; 99284; 99285; J1170; J1650; J2250; J2270; J2405; J2704; J3010